=== PATIENT | female | born 1965 | race Two or more races ===

== ENCOUNTER 2021-08-19 09:25 | Outpatient (CLI) | payer OTHER | END 2021-08-19 09:45 | disposition home or self-care (01) | LOC: PPH VACUNA 09:25 | PROVIDERS: ATTEND Emergency Medicine Pediatric Emergency Medicine | DX: Z23 Encounter for immunization (principal) ==

== ENCOUNTER 2023-05-12 08:34 | Outpatient (CLI) | payer OTHER | END 2023-05-12 08:42 | disposition home or self-care (01) | LOC: TOM 08:34 | DX: C76.40 Malignant neoplasm of unspecified upper limb (principal); K57.32 Diverticulitis of large intestine without perforation or abscess without bleeding; K57.30 Diverticulosis of large intestine without perforation or abscess without bleeding ==